=== PATIENT | male | born 1985 | race Asian ===

== ENCOUNTER 2019-06-12 07:41 | Emergency (ER) | payer MEDICAID ==
[~2019-06-12] VITALS: Ht 162.6 cm; Wt 63.5 kg
--- NOTE | 2019-06-12 07:41 | NUR ---
Patient to ER [address] to [facility] for evaluation. Side rails up.
--- NOTE | 2019-06-12 07:45 | NUR ---
Here for ok to book, accompanied by law enforcement
[2019-06-12 07:47] VITALS: BP_SYST 126
--- NOTE | 2019-06-12 07:50 | NUR ---
KARLEY Abdul at bedside examining patient.
[2019-06-12 07:57] VITALS: BP_SYST 126
--- NOTE | 2019-06-12 08:00 | NUR ---
Patient given written and verbal discharge instructions and verbalizes understanding. ER MD discussed with patient the results and treatment provided. Patient in stable condition. ID arm band removed. Rx of silvadene topical cream given. Patient educated on pain management and to follow up with PMD. Pain Scale 0. Opportunity for questions provided and answered. Medication side effect fact sheet provided.
[2019-06-12] MEDS ORDERED: BACITRACIN 1 GM OINT TP ONE (08:08)
== END 2019-06-12 08:00 ==
LOC: SED 07:41
DX: T20.17XA Burn of first degree of neck, initial encounter (principal); X10.2XXA Contact with fats and cooking oils, initial encounter; Y93.89 Activity, other specified; Y92.89 Other specified places as the place of occurrence of the external cause; Y99.8 Other external cause status
CPT/HCPCS: 99284